=== PATIENT | male | born 1955 | race Caucasian/White ===

== ENCOUNTER 2022-10-21 04:18 | Emergency (ER) | payer MEDICARE, SELFPAY ==
[2022-10-21 04:27] VITALS: BP 189/117; PULSE 93; RESP 20; TEMP 36.6; O2SAT 94; BMI 38.7
[2022-10-21 04:30] VITALS: O2SAT 93
--- NOTE | 2022-10-21 04:35 | W.ED.HA ---
HPI - Headache General: Chief Complaint: Headache Stated Complaint: high BP Time Seen by Provider: 10/21/22 04:21 Source: patient Mode of arrival: ambulatory Limitations: no limitations History of Present Illness: 67-year-old male has a history of high blood pressure he states he takes herbal medication for his blood pressure he states that tonight though he is feeling like his blood pressure is high and it was running in the 180s he is 188/123 here. States he feels some very slight pressure in his head he denies really a headache he just feels some pressure. Denies any chest pain denies any vomiting or diarrhea. Associated symptoms: Deny chest pain, fever(s), nausea, rash or vomiting Review of Systems Const: Denies: fever(s), chills or body aches Eyes: Denies: blurry vision or eye discomfort ENMT: Denies: throat pain or dental pain Card: Denies: chest pain Resp: Denies: dyspnea GI: Denies: abdominal pain, nausea, vomiting or diarrhea Musc: Denies: neck pain or back pain Skin/Breast: Denies: rash Neuro: Reports: headache(s) PFSH ED PFSH: Medical History Hypertension Social History Substance/Drug Use: never Physical Exam Const: COMMON NORMALS: no acute distress, patient oriented x3 and healthy appearing HENMT: COMMON NORMALS: normocephalic and atraumatic HEAD & SCALP: normocephalic and atraumatic Eye: COMMON NORMALS: Equal, round and reactive pupils present and conjunctivae normal CONJUNCTIVA: Yes conjunctivae normal PUPIL: Yes Equal, round and reactive pupils present Neck/C-Spine: COMMON NORMALS: full ROM and supple Chest: COMMONS NORMALS: normal inspection of the chest and normal palpation of entire chest wall Resp: COMMON NORMALS: normal respiratory effort, No retractions, No use of accessory muscles and clear to auscultation bilaterally AUSCULTATION: clear to auscultation bilaterally Cardio: COMMON NORMALS: regular rate, regular rhythm and No murmurs present (Cardio) RATE: regular rate RHYTHM: regular rhythm GI: COMMON NORMALS: Normal to inspection, nondistended, normoactive bowel sounds present, Soft to palpation, non-tender and no masses PALPATION: Yes Soft to palpation Extremity: COMMON NORMALS: normal to inspection and full ROM Neuro: COMMON NORMALS: patient oriented x3, moves all extremities and no focal motor deficits Psych: COMMON NORMALS: mental status grossly normal, Normal thought process present and cooperative THOUGHT PROCESS: Normal thought process present Skin: COMMON NORMALS: no rashes or lesions noted and no wounds GENERAL SKIN EXAM: no rashes or lesions noted Course Vital Signs: Vital signs: Vital Signs Temperature 97.9 F 10/21/22 04:27 Pulse Rate 87 10/21/22 05:14 Respiratory Rate 18 10/21/22 05:14 Blood Pressure 173/120 10/21/22 05:14 Pulse Oximetry 90 10/21/22 05:14 Oxygen Delivery Me thod Room Air 10/21/22 04:30 MDM - Headache Medical Decision Making Patient presents with hypertension blood pressures improved here with meds we will start him on metoprolol he is well-appearing here otherwise no signs of meningitis or subarachnoid hemorrhage she needs to follow-up with PCP he is return if worsening. Differential Diagnosis Unlikely migraine, subarachnoid hemorrhage or meningitis Lab Data 10/21/22 04:40 10/21/22 04:40 Laboratory Results WBC 7.9 10^3/uL (4.0-10.0) 10/21/22 04:40 RBC 5.78 10^6/uL (4.1-5.3) H 10/21/22 04:40 Hgb 16.9 g/dL (11.7-16.6) H 10/21/22 04:40 Hct 52.3 % (42.0-52.0) H 10/21/22 04:40 MCV 90.5 fl (80-94) 10/21/22 04:40 MCH 29.2 pg (28.0-34.0) 10/21/22 04:40 MCHC 32.3 g/dL (30.0-36.0) 10/21/22 04:40 RDW 12.8 % (12.1-15.1) 10/21/22 04:40 Plt Count 235 10^3/cmm (130-400) 10/21/22 04:40 MPV 9.4 fL (7.4-10.4) 10/21/22 04:40 Neut % (Auto) 69.6 % 10/21/22 04:40 Lymph % (Auto) 21.2 % 10/21/22 04:40 [place] % (Auto) 7.4 % 10/21/22 04:40 Eos % (Auto) 0.9 % 10/21/22 04:40 Baso % (Auto) 0.4 % 10/21/22 04:40 Neut # (Auto) 5.53 10^3/uL (1.8-7.7) 10/21/22 04:40 Lymph # (Auto) 1.7 10^3/uL (0.8-4.8) 10/21/22 04:40 [place] # (Auto) 0.6 10^3/uL (0.2-0.9) 10/21/22 04:40 Eos # (Auto) 0.1 10^3/uL (0.0-0.8) 10/21/22 04:40 Baso # (Auto) 0.0 10^3/uL (0.0-0.1) 10/21/22 04:40 Nucleated RBC % (auto) 0 % 10/21/22 04:40 Nucleated RBCs # 0.0 /100WBC 10/21/22 04:40 Sodium 137 mmol/L (136-145) 10/21/22 04:40 Potassium 4.1 mmol/L (3.5-5.1) 10/21/22 04:40 Chloride 105 mmol/L (98-107) 10/21/22 04:40 Carbon Dioxide 19 mmol/L (22-29) L 10/21/22 04:40 Anion Gap 17.1 (5-19) 10/21/22 04:40 BUN 16 mg/dL (8-23) 10/21/22 04:40 Creatinine 0.8 mg/dL (0.7-1.2) 10/21/22 04:40 GFR Calculation 97.0 mL/min (90-130) 10/21/22 04:40 Glucose 133 mg/dL (65-115) H 10/21/22 04:40 Calculated Osmolality 287 mOsm/kg (285-295) 10/21/22 04:40 Calcium 8.8 mg/dL (8.5-10.5) 10/21/22 04:40 EKG Data EKG 1: I personally reviewed and interpreted this EKG as follows: EKG interpretation date: 10/21/22 EKG interpretation time: 04:38 Interpretation: nsr hr [address] or t wave abnormalities [id number] qtc 414 Discharge Plan Discharge Patient Disposition: Home Clinical Impression: Hypertension Prescriptions: New metoprolol succinate 50 mg tablet extended release 24 hr 50 mg PO DAILY Qty: 30 0RF Discharge Orders: Discharge ED (Routine); Ordered 10/21/22 Ordered By: Sarah Cleaning Discharge Diet: Advance as tolerated Discharge Activity: Resume usual activity Patient Instructions: Hypertension (ED) Coding Level of Care Code ED Mine Production Engineer for Chg Rhonda
--- NOTE | 2022-10-21 04:38 | ECG_ITS ---
[facility] Test Date: 2022-10-21 Pat Name: Tito Us Department: Room: Gender: Male Orthopedic Technician: : 1955 Requested By: Sarah Cleaning Order Number: [id number] Spencer MD: Dylan Walker M.D. Measurements Intervals [place] Rate: 91 P: 34 FL: 159 QRS: -31 QRSD: 102 T: 34 QT: 365 QTc: 451 Interpretive Statements SINUS RHYTHM LEFT AXIS DEVIATION [QRS AXIS < -30] No previous ECG available for comparison Electronically Signed On 10-21-2022 14:01:28 CDT by Dylan Walker M.D. [id number]
[2022-10-21 04:49] LABS: Basophils % 0.4 %; Eosinophils # 0.1 10^3/uL (0.0-0.8); Eosinophils % 0.9 %; Hematocrit 52.3 % (42.0-52.0); Hemoglobin 16.9 g/dL (11.7-16.6); Lymphocytes # 1.7 10^3/uL (0.8-4.8); Lymphocytes % 21.2 %; Mean Corpuscular HGB Conc 32.3 g/dL (30.0-36.0); Mean Corpuscular Hemoglobin 29.2 pg (28.0-34.0); Mean Corpuscular Volume 90.5 fl (80-94); Mean Platelet Volume 9.4 fL (7.4-10.4); Monocytes # 0.6 10^3/uL (0.2-0.9); Monocytes % 7.4 %; Neutrophils # 5.53 10^3/uL (1.8-7.7); Neutrophils % 69.6 %; Nucleated Red Blood Cells % 0 %; Platelet Count 235 10^3/cmm (130-400); Red Blood Count 5.78 10^6/uL (4.1-5.3); Red Cell Distribution Width 12.8 % (12.1-15.1); White Blood Count 7.9 10^3/uL (4.0-10.0)
[2022-10-21] MEDS: labetalol 5 mg/mL SDV 20mL 10 MG IVP (04:49)
[2022-10-21 05:06] LABS: Anion Gap 17.1 (5-19); Blood Urea Nitrogen 16 mg/dL (8-23); Calcium 8.8 mg/dL (8.5-10.5); Carbon Dioxide 19 mmol/L (22-29); Chloride 105 mmol/L (98-107); Glucose 133 mg/dL (65-115); Osmolality Calculated 287 mOsm/kg (285-295); Potassium 4.1 mmol/L (3.5-5.1); Sodium 137 mmol/L (136-145)
[2022-10-21 05:14] VITALS: BP 173/120; PULSE 87; RESP 18; O2SAT 90
[2022-10-21] MEDS: metoprolol tartrate 25 mg Tablet PO (05:15)
[2022-10-21 05:36] VITALS: BP 178/103; PULSE 82; RESP 18; O2SAT 93
--- NOTE | 2022-10-22 11:26 | PC.NURSE ---
CM tried to call patient and set him up with a PCP. Patient did not answer and did not have a VM set up. CM will try again at a later time.
--- NOTE | 2022-10-22 11:44 | PC.NURSE ---
Patient returned call and would like to be set up with Dr. Prescott at [facility]. TCM attempted to call clinic and could not get through. Faxed referral and will try to get ahold of clinic at a later time.
== END 2022-10-21 05:41 | disposition home or self-care (01) ==
PROVIDERS: Emergency Provider Emergency Medicine
DX: I10 Essential (primary) hypertension (principal)
CPT/HCPCS: 80048; 85025; 93005; 96374; 99284; J3490

== ENCOUNTER 2023-03-10 02:01 | Emergency (ER) | payer MEDICARE, SELFPAY ==
[2023-03-10 02:04] VITALS: BP 204/114; PULSE 77; RESP 20; TEMP 36.6; O2SAT 99; BMI 38.0
--- NOTE | 2023-03-10 02:04 | ECG_ITS ---
[facility] Test Date: 2023-03-10 Pat Name: Tito Us Department: Room: Gender: Male X Ray Inspector: : 1955 Requested By: Sarah Cleaning Order Number: [id number] Spencer MD: Tono Galaviz M.D. Measurements Intervals [place] Rate: 75 P: 41 NC: 159 QRS: -16 QRSD: 111 T: 28 QT: 396 QTc: 443 Interpretive Statements SINUS RHYTHM MODERATE INTRAVENTRICULAR CONDUCTION DELAY [110+ ms QRS DURATION] Compared to ECG 10/21/2022 04:38:29 Intraventricular conduction delay now present Left-axis deviation no longer present Electronically Signed On 03-10-2023 9:20:44 CDT by Tono Galaviz M.D. [id number] f
--- NOTE | 2023-03-10 02:10 | XRR_ITS ---
PROCEDURE INFORMATION: Exam: XR Chest Exam date and time: 03/10/2023 2:15 AM Age: 68 years old Clinical indication: Shortness of breath; Patient HX: High blood pressure; Additional info: SOB TECHNIQUE: Imaging protocol: Radiologic exam of the chest. Views: 1 view. COMPARISON: No relevant prior studies available. FINDINGS: Lungs: No consolidation. Pleural spaces: Unremarkable. No pleural effusion. No pneumothorax. Heart/Mediastinum: No cardiomegaly. Bones/joints: No acute fracture. XR/XR chest 1V portable [id number] IMPRESSION: No acute findings.
--- NOTE | 2023-03-10 02:14 | W.ED.SOB ---
HPI - SOB/Dyspnea General: Chief Complaint: Shortness of Breath/Dyspnea Stated Complaint: Blood Pressure Time Seen by Provider: 03/10/23 02:03 Source: patient Mode of arrival: ambulatory Limitations: no limitations History of Present Illness: HPI Narrative: 68-year-old male has a history of hypertension he states that he woke up tonight and felt like his blood pressure high and checked it was over 200 states he has had some dyspnea but he states that he just feels short of breath at times he denies any shortness of breath currently he denies chest pain denies any vomiting or diarrhea denies any worsening proving factors he states he has been take his metoprolol. Associated symptoms: Deny abdominal pain, chest pain, fever(s), nausea or vomiting Review of Systems Const: Denies: fever(s), chills, body aches or change in appetite Eyes: Denies: blurry vision or eye discomfort ENMT: Denies: throat pain or dental pain Card: Denies: chest pain Resp: Denies: dyspnea GI: Denies: abdominal pain, nausea, vomiting or diarrhea : Denies: dysuria Musc: Denies: neck pain or back pain Skin/Breast: Denies: rash Neuro: Denies: headache(s) Psych: Denies: depression Jarrod/Lymph: Denies: easy bruising All/Imm: Denies: urticaria PFSH ED PFSH: Medical History Hypertension Social History Substance/Drug Use: never Physical Exam Const: COMMON NORMALS: no acute distress, patient oriented x3 and healthy appearing HENMT: COMMON NORMALS: normocephalic and atraumatic HEAD & SCALP: normocephalic and atraumatic Eye: COMMON NORMALS: Equal, round and reactive pupils present and EOMs intact bilaterally PUPIL: Yes Equal, round and reactive pupils present Neck/C-Spine: COMMON NORMALS: full ROM and supple Chest: COMMONS NORMALS: normal inspection of the chest and normal palpation of entire chest wall Resp: COMMON NORMALS: normal respiratory effort, No retractions, No use of accessory muscles and clear to auscultation bilaterally AUSCULTATION: clear to auscultation bilaterally Cardio: COMMON NORMALS: regular rate, regular rhythm and No murmurs present (Cardio) RATE: regular rate RHYTHM: regular rhythm GI: COMMON NORMALS: Normal to inspection, nondistended, normoactive bowel sounds present, Soft to palpation, non-tender and no masses PALPATION: Yes Soft to palpation Extremity: COMMON NORMALS: normal to inspection and full ROM Neuro: COMMON NORMALS: patient oriented x3, moves all extremities and no focal motor deficits Psych: COMMON NORMALS: mental status grossly normal, Normal thought process present and cooperative THOUGHT PROCESS: Normal thought process present Skin: COMMON NORMALS: no rashes or lesions noted and no wounds GENERAL SKIN EXAM: no rashes or lesions noted Course Vital Signs: Vital signs: Vital Signs Temperature 97.8 F 03/10/23 02:04 Pulse Rate 79 03/10/23 03:10 Respiratory Rate 20 H 03/10/23 03:10 Blood Pressure 155/104 03/10/23 03:10 Pulse Oximetry 97 03/10/23 03:10 Oxygen Delivery Me thod Room Air 03/10/23 03:10 MDM - SOB/Dyspnea Medical Decision Making Patient presents here with hypertension he had no chest pain his blood pressure here is improved we will increase his metoprolol from 50-100 today he is to follow-up with PCP and return if worsening. Medical Records I reviewed the patient's medical records. Lab Data I reviewed the patient's lab results. 03/10/23 02:11 03/10/23 02:11 Labs/Radiology: Laboratory Results WBC 8.45 10^3/uL (3.29-11.43) 03/10/23 02:11 RBC 5.67 10^6/uL (3.85-5.65) H 03/10/23 02:11 Hgb 16.90 g/dL (11.27-16.99) 03/10/23 02:11 Hct 51.5 % (37-53) 03/10/23 02:11 MCV 90.8 fl (82-101) 03/10/23 02:11 MCH 29.8 pg (27-33) 03/10/23 02:11 MCHC 32.8 g/dL (30-55) 03/10/23 02:11 RDW 12.8 % (12.1-15.1) 03/10/23 02:11 Plt Count 230 10^3/cmm (157-399) 03/10/23 02:11 MPV 9.1 fL (7.4-10.4) 03/10/23 02:11 Neut % (Auto) 47.7 % 03/10/23 02:11 Lymph % (Auto) 36.1 % 03/10/23 02:11 [place] % (Auto) 11.6 % 03/10/23 02:11 Eos % (Auto) 3.7 % 03/10/23 02:11 Baso % (Auto) 0.4 % 03/10/23 02:11 Neut # (Auto) 4.04 10^3/uL (1.8-7.7) 03/10/23 02:11 Lymph # (Auto) 3.1 10^3/uL (0.8-4.8) 03/10/23 02:11 [place] # (Auto) 1.0 10^3/uL (0.2-0.9) H 03/10/23 02:11 Eos # (Auto) 0.3 10^3/uL (0.0-0.8) 03/10/23 02:11 Baso # (Auto) 0.0 10^3/uL (0.0-0.1) 03/10/23 02:11 Nucleated RBC % (auto) 0 % 03/10/23 02:11 Nucleated RBCs # 0.0 /100WBC 03/10/23 02:11 Sodium 141 mmol/L (136-145) 03/10/23 02:11 Potassium 4.1 mmol/L (3.5-5.1) 03/10/23 02:11 Chloride 106 mmol/L (98-107) 03/10/23 02:11 Carbon Dioxide 25 mmol/L (22-29) 03/10/23 02:11 Anion Gap 14.1 (5-19) 03/10/23 02:11 BUN 19 mg/dL (8-23) 03/10/23 02:11 Creatinine 0.9 mg/dL (0.7-1.2) 03/10/23 02:11 GFR Calculation 84.4 mL/min (90-130) L 03/10/23 02:11 Glucose 114 mg/dL (65-115) 03/10/23 02:11 Calculated Osmolality 295 mOsm/kg (285-295) 03/10/23 02:11 Calcium 8.9 mg/dL (8.5-10.5) 03/10/23 02:11 NT-Pro-B Natriuret Pep 36 pg/mL (0-125) 03/10/23 02:11 XR interpretation done by ED provider, pending radiology final review ED provider radiology interpretation(s): No acute abnormality Discharge Plan Discharge Patient Disposition: Home Clinical Impression: Hypertension Condition: Stable Prescriptions: New metoprolol succinate 100 mg tablet extended release 24 hr 100 mg PO DAILY Qty: 30 0RF Discontinued metoprolol succinate 50 mg tablet extended release 24 hr 50 mg PO DAILY Qty: 30 0RF Discharge Orders: Discharge ED (Routine); Ordered 03/10/23 Ordered By: Sarah Cleaning Referrals: Pop Prescott MD [Primary Care Provider] - 1-3 days Discharge Diet: Advance as tolerated Discharge Activity: Resume usual activity Patient Instructions: Hypertension (ED) Coding Level of Care Code ED Plodder Operator for Vandana Ellis
[2023-03-10] MEDS: hyDRALAzine 20 mg/mL INJ 1 mL 10 MG IVP (02:15)
[2023-03-10 02:17] LABS: Basophils % 0.4 %; Eosinophils # 0.3 10^3/uL (0.0-0.8); Eosinophils % 3.7 %; Hematocrit 51.5 % (37-53); Lymphocytes # 3.1 10^3/uL (0.8-4.8); Lymphocytes % 36.1 %; Mean Corpuscular HGB Conc 32.8 g/dL (30-55); Mean Corpuscular Hemoglobin 29.8 pg (27-33); Mean Corpuscular Volume 90.8 fl (82-101); Mean Platelet Volume 9.1 fL (7.4-10.4); Monocytes % 11.6 %; Neutrophils # 4.04 10^3/uL (1.8-7.7); Neutrophils % 47.7 %; Nucleated Red Blood Cells % 0 %; Platelet Count 230 10^3/cmm (157-399); Red Blood Count 5.67 10^6/uL (3.85-5.65); Red Cell Distribution Width 12.8 % (12.1-15.1); White Blood Count 8.45 10^3/uL (3.29-11.43)
[2023-03-10 02:21] VITALS: BP 169/100; PULSE 75; RESP 15; O2SAT 99
[2023-03-10 02:43] LABS: Chloride 106 mmol/L (98-107); Glucose 114 mg/dL (65-115); Potassium 4.1 mmol/L (3.5-5.1); Sodium 141 mmol/L (136-145)
[2023-03-10 02:45] VITALS: BP 148/104; PULSE 86; RESP 18; O2SAT 97
[2023-03-10 03:02] LABS: Anion Gap 14.1 (5-19); Blood Urea Nitrogen 19 mg/dL (8-23); Calcium 8.9 mg/dL (8.5-10.5); Carbon Dioxide 25 mmol/L (22-29); Glomerular Filtration Rate 84.4 mL/min (90-130); Osmolality Calculated 295 mOsm/kg (285-295)
[2023-03-10 03:10] VITALS: BP 155/104; PULSE 79; RESP 20; O2SAT 97
[2023-03-10 03:13] LABS: NT Pro B Type Natriuretic Pept 36 pg/mL (0-125)
[2023-03-10 03:24] VITALS: BP 161/98; PULSE 77; RESP 18; O2SAT 97
[2023-03-10] MEDS: metoprolol succinate ER (24 HR) 50 mg Tablet PO (03:24)
== END 2023-03-10 03:26 | disposition home or self-care (01) ==
PROVIDERS: Emergency Provider Emergency Medicine; PCP Family Medicine
DX: I10 Essential (primary) hypertension (principal)
CPT/HCPCS: 71045; 80048; 83880; 85025; 93005; 96374; 99284; J0360

== ENCOUNTER 2023-03-11 06:47 | Emergency (ER) | payer MEDICARE, SELFPAY ==
[2023-03-11 06:58] VITALS: BP 160/92; PULSE 73; RESP 18; TEMP 36.8; O2SAT 95; BMI 38.0
--- NOTE | 2023-03-11 07:08 | ECG_ITS ---
[facility] Test Date: 2023-03-11 Pat Name: Tito Us Department: Room: Gender: Male Guideman: : 1955 Requested By: Oleg Hopson Order Number: [id number] Spencer MD: Christina Ray M.D. Measurements Intervals [place] Rate: 71 P: 43 GA: 160 QRS: -22 QRSD: 105 T: 38 QT: 398 QTc: 433 Interpretive Statements SINUS RHYTHM BORDERLINE LEFT AXIS DEVIATION [QRS AXIS < -20] Compared to ECG 03/10/2023 02:04:46 Intraventricular conduction delay no longer present Electronically Signed On 03-11-2023 10:58:53 CDT by Christina Ray M.D. [id number]
--- NOTE | 2023-03-11 07:08 | W.ED.GENADLT ---
HPI - General Adult General: Chief complaint: General Medical Stated complaint: said bp is high Time Seen by Provider: 03/11/23 07:05 Source: patient Mode of arrival: ambulatory History of Present Illness: 68-year-old male presents to the emergency room with complaint of elevated blood pressure. He states that his blood pressure at home was in the 170 systolic range. He was here a week ago for similar complaint at that time his metoprolol was increased from 50 daily to 100 daily. No chest pain no shortness of breath. Associated symptoms: Deny chest pain, confusion, cough, diaphoresis, decreased appetite, dyspnea, fevers/chills, headache(s), malaise, nausea, rash, palpitations, seizures, short of breath, syncope, vomiting or weakness Treatments prior to arrival: none Review of Systems Const: Denies: fever(s), chills, fatigue, malaise or diaphoresis ENMT: Denies: throat pain, ear or mastoid pain, nasal discharge or nasal congestion Card: Denies: chest pain, palpitations or syncope Resp: Denies: dyspnea GI: Denies: abdominal pain, nausea or vomiting : Denies: flank pain, dysuria, urinary frequency or urinary urgency Skin/Breast: Denies: rash Neuro: Denies: headache(s) or confusion PFSH ED PFSH: Medical History Hypertension Social History Substance/Drug Use: never Physical Exam Const: GENERAL APPEARANCE: cooperative and comfortable ORIENTATION/CONSCIOUSNESS: Yes awake, Yes oriented to person, Yes oriented to place and Yes oriented to time HENMT: COMMON NORMALS: normocephalic, atraumatic and hearing grossly normal bilaterally HEAD & SCALP: normocephalic and atraumatic Resp: COMMON NORMALS: normal respiratory effort, No retractions, No use of accessory muscles and clear to auscultation bilaterally AUSCULTATION: clear to auscultation bilaterally Cardio: COMMON NORMALS: regular rate, regular rhythm and No murmurs present (Cardio) RATE: regular rate RHYTHM: regular rhythm GI: COMMON NORMALS: Soft to palpation and No hepatosplenomegaly present AUSCULTATION: Yes normoactive bowel sounds PALPATION: Yes Soft to palpation, No Tenderness to palpation present (GI), No Guarding due to palpation present (GI) and Yes No hepatosplenomegaly present Extremity: COMMON NORMALS: normal to inspection, capillary refill normal, no clubbing, cyanosis or edema, no calf tenderness and no pedal edema Neuro: SENSORIUM/ORIENTATION: Yes oriented to person, Yes oriented to place and Yes oriented to time Skin: COMMON NORMALS: no rashes or lesions noted GENERAL SKIN EXAM: no rashes or lesions noted Course Vital Signs: Vital signs: Vital Signs Temperature 98.2 F 03/11/23 07:24 Pulse Rate 73 03/11/23 07:24 Respiratory Rate 18 03/11/23 07:24 Blood Pressure 162/92 03/11/23 07:24 Pulse Oximetry 95 03/11/23 07:24 Oxygen Delivery Me thod Room Air 03/11/23 06:58 MDM - General Adult Medical Decision Making EKG shows normal sinus rhythm no acute ST changes noted. Blood pressure is still elevated but is not significantly abnormal. At this point would not recommend any changes continue same medications follow-up with primary care return if is worsening or change of symptoms. Medical Records I reviewed the patient's medical records. Lab Data I reviewed the patient's lab results. No radiology studies performed this visit Discharge Plan Discharge Patient Disposition: Home Clinical Impression: Hypertension Condition: Stable Prescriptions: No Action metoprolol succinate 100 mg tablet extended release 24 hr 100 mg PO DAILY Qty: 30 0RF Discharge Orders: Discharge ED (Routine); Ordered 03/11/23 Ordered By: Oleg Ayala Referrals: Pop Prescott MD [Primary Care Provider] - Discharge Diet: Usual diet Discharge Activity: Increase activity as tolerated Patient Instructions: Hypertension (ED), Opioid Safety, Pain Management Activity Restrictions/Additional Instructions: Follow-up with your primary care doctor to reevaluate your blood pressure within the next week. Coding Level of Care Code ED Natural Sciences Professor for Vandana Ellis
--- NOTE | 2023-03-11 07:23 | PC.NURSE ---
Patient came in for high blood pressure then took BP meds. Patient denies chest pain and discomfort no SOB.
[2023-03-11 07:24] VITALS: BP 162/92; PULSE 73; RESP 18; TEMP 36.8; O2SAT 95
== END 2023-03-11 07:25 | disposition home or self-care (01) ==
PROVIDERS: Emergency Provider Family Medicine; PCP Family Medicine
DX: I10 Essential (primary) hypertension (principal)
CPT/HCPCS: 93005; 99283

== ENCOUNTER 2024-04-09 15:50 | Outpatient (CLI) | payer MEDICARE, SELFPAY ==
--- NOTE | 2024-04-09 15:52 | CTR_ITS ---
PROCEDURE INFORMATION: Exam: CT Chest With Contrast; Diagnostic Exam date and time: 04/09/2024 4:41 PM Age: 69 years old Clinical indication: Other: Thoracic back pain TECHNIQUE: Imaging protocol: Diagnostic computed tomography of the chest with contrast. Radiation optimization: All CT scans at this facility use at least one of these dose optimization techniques: automated exposure control; mA and/or kV adjustment per patient size (includes targeted exams where dose is matched to clinical indication); or iterative reconstruction. Contrast material: OMNI 350; Contrast volume: 100 ml; Contrast route: INTRAVENOUS (IV); COMPARISON: CR XR chest 1V portable [id number] 03/10/2023 2:15 AM RADIATION DOSE METRICS: Total DLP (mGy-cm): 763.61 FINDINGS: Lungs: Calcified granuloma in the left mid lung. Pleural spaces: Unremarkable. No pneumothorax. No pleural effusion. Heart: Unremarkable. No cardiomegaly. No pericardial effusion. Lymph nodes: Unremarkable. No enlarged lymph nodes. Vasculature: Unremarkable. No aortic aneurysm. Liver: Hepatic steatosis. Several left hepatic cysts. Hepatic steatosis. Bones/joints: Unremarkable. No acute fracture. Soft tissues: Unremarkable. Other findings: No aneurysm or dissection. CT/CT chest w con* [id number] IMPRESSION: No acute intrathoracic pathology.
[2024-04-09 16:43] LABS: Blood Urea Nitrogen 18 mg/dL (8-23); Glomerular Filtration Rate 84.2 mL/min (90-130)
[2024-04-09] MEDS: iohexol 350 mg/mL 500 mL Btl (per mL) IV (16:46)
== END 2024-04-09 15:51 | disposition home or self-care (01) ==
PROVIDERS: PCP Family Medicine; Visit Provider Family Medicine
DX: M54.6 Pain in thoracic spine (principal); J84.10 Pulmonary fibrosis, unspecified; K76.0 Fatty (change of) liver, not elsewhere classified
CPT/HCPCS: 71260; 82565; 84520